=== PATIENT | male | born 1995 | race Caucasian/White ===

== ENCOUNTER 2020-10-22 20:13 | Emergency (ER) | payer OTHER ==
[~2020-10-22] VITALS: Ht 172.7 cm; Wt 88.5 kg
[2020-10-22 20:35] VITALS: Ht 172.7 cm; Wt 88.5 kg
[2020-10-23] VITALS: BP 138/69
== END 2020-10-23 | disposition home or self-care (01) ==
LOC: ED 20:13
DX: S39.012A Strain of muscle, fascia and tendon of lower back, initial encounter (principal); Z88.6 Allergy status to analgesic agent; X50.9XXA Other and unspecified overexertion or strenuous movements or postures, initial encounter; Y93.89 Activity, other specified; Y92.89 Other specified places as the place of occurrence of the external cause; Y99.8 Other external cause status